=== PATIENT | male | born 1990 | race Caucasian/White ===

== ENCOUNTER 2018-02-19 13:56 | Emergency (ER) | payer OTHER ==
[~2018-02-19] VITALS: Ht 180.3 cm; Wt 104.3 kg
[2018-02-19 14:03] VITALS: BP_SYST 146
--- NOTE | 2018-02-19 14:12 | NUR ---
Patient triaged and placed in waiting room. VSS and patient appears in no acute distress at this time. Accompanied by FAMILY, awaiting available bed, and MD notified of need for MSE.
--- NOTE | 2018-02-19 14:58 | NUR ---
Patient to ER bed 08 to gown for evaluation. Side rails up. Report given to KEVIN FOY.
--- NOTE | 2018-02-19 15:10 | NUR ---
ER Dr. Mar at bedside examining patient.
[2018-02-19] MEDS ORDERED: KETOROLAC TROMETHAMINE 60 MG/2 ML VIAL IM ONE (15:15)
[2018-02-19] MEDS ORDERED: PROCHLORPERAZINE EDISYLATE 10 MG/2 ML VIAL IM ONE (15:15)
--- NOTE | 2018-02-19 15:16 | NUR ---
PT COMES TO ER WITH C/O DIZZINESS SINCE THIS AM WITH DIARRHEA THAT STARTED LAST BNIGHT, DENIES ANY VISUAL DISTURBANCES. DENIES NUCCHAL RIGIDITY, JO FEVERS/ RESP EVEN AND UNALBORED, IN NAD. DENIES EAR PAIN/DISCHARGE, STATES DIZZINESS WORSE WITH SITTING UP. HAD SIMILIAR EVENT LAST YEAR WITH NO MAJOR MED PROBLEMS,
[2018-02-19 16:46] VITALS: BP_SYST 135
--- NOTE | 2018-02-19 16:46 | NUR ---
Patient given written and verbal discharge instructions and verbalizes understanding. ER MD Mar discussed with patient the results and treatment provided. Patient in stable condition. ID arm band removed. Rx of Ultram given. Patient educated on pain management and to follow up with PMD. Pain Scale 0.Opportunity for questions provided and answered. Medication side effect fact sheet provided.
== END 2018-02-19 16:46 | disposition home or self-care (01) ==
LOC: SED 13:56
DX: G43.909 Migraine, unspecified, not intractable, without status migrainosus (principal); R03.0 Elevated blood-pressure reading, without diagnosis of hypertension
CPT/HCPCS: 96372; 99283; J0780; J1885